=== PATIENT | female | born 1970 | race Caucasian/White ===

== ENCOUNTER → 2022-03-26 10:42 | Outpatient (BNVA) | payer OTHER, SELFPAY | PROVIDERS: PCP Internal Medicine; Visit Provider Nurse Practitioner Family | DX: G47.33 Obstructive sleep apnea (adult) (pediatric) (principal); R06.83 Snoring; R40.0 Somnolence; G43.109 Migraine with aura, not intractable, without status migrainosus; Z79.4 Long term (current) use of insulin | CPT/HCPCS: 99212 ==

== ENCOUNTER → 2022-06-02 19:30 | Outpatient (REF) | payer OTHER, SELFPAY | LOC: HO.SL 19:30 | PROVIDERS: Visit Provider Nurse Practitioner Family | DX: G47.33 Obstructive sleep apnea (adult) (pediatric) (principal) | CPT/HCPCS: 95810; 95811 ==

== ENCOUNTER → 2022-06-23 12:56 | Outpatient (BNVA) | payer OTHER, SELFPAY | PROVIDERS: PCP Internal Medicine; Visit Provider Nurse Practitioner Family | DX: G43.109 Migraine with aura, not intractable, without status migrainosus (principal); G47.33 Obstructive sleep apnea (adult) (pediatric); G47.34 Idiopathic sleep related nonobstructive alveolar hypoventilation; E66.9 Obesity, unspecified; Z68.37 Body mass index [BMI] 37.0-37.9, adult | CPT/HCPCS: 99212 ==

== ENCOUNTER → 2022-07-22 19:30 | Outpatient (REF) | payer OTHER, SELFPAY | LOC: HO.SL 19:30 | PROVIDERS: PCP Internal Medicine; Visit Provider Nurse Practitioner Family | DX: Z13.89 Encounter for screening for other disorder (principal) ==

== ENCOUNTER 2023-01-16 08:03 | Outpatient (AMB) | payer OTHER, SELFPAY ==
--- NOTE | 2023-01-16 08:10 | MHC.OFFVIS ---
Intake Vital Signs 01/16/23 08:11 Height 5 ft 1 in Weight 178 lb 4 oz BMI 33.7 BP 106/62 Blood Pressure Location Rt brachial Position Sitting Pulse 90 Pulse Source Pulse Oximeter Pulse Oximetry (%) 98 Oxygen Delivery Method Room Air Intake Visit Reasons: 3m follow up-Confirmed Intake Note: Pt presents to the office for 3 month follow up for migraines. She reports she feels the same. she still gets headaches in the frontal and temporal regions. Allergies Penicillins [PENICILLINS] Allergy (Mild, Unverified 01/16/23 08:11) RASH penicillin V Allergy (Unknown, Verified 01/16/23 08:11) Rash Medication List - Last Reconciled 01/16/23 by JIMMY Box aspirin 1 tab PO BEDTIME atorvastatin 10 mg PO DAILY blood sugar diagnostic (FreeStyle Lite Strips) As directed bupropion HCl 150 mg PO QAM buspirone 30 mg PO BID cariprazine (Vraylar) 3 mg PO BEDTIME clonazepam 0.5 mg PO DAILY PRN diphenhydramine HCl (Banophen) 50 mg PO BEDTIME gabapentin 100 mg PO TID gabapentin 800 mg PO DAILY glipizide ER mg PO insulin glargine (Lantus Solostar U-100 Insulin) units subcut insulin lispro subcut levothyroxine 125 mcg PO DAILY loratadine 10 mg PO DAILY losartan 100 mg PO DAILY magnesium oxide 400 mg PO BEDTIME 30 days metformin 1,000 mg PO BID pen needle, diabetic (Comfort EZ Pen [place]) As directed riboflavin (vitamin B2) 400 mg PO DAILY 30 days semaglutide (Ozempic) mg subcut sennosides (Bernadine-neil) 8.6 mg PO BID PRN sumatriptan succinate 50 - 100 mg orally at onset of headache, may repeat in 2 hrs PRN; max 2 tabs/day or 4 tabs/wk 30 days topiramate 25 - 50 mg (1 - 2 x 25 mg) PO BEDTIME 30 days HPI HPI Comments History of Present Illness Details 52-yr-old female presents for f/u visit. Pt denies any significant interval medical changes. Pt reports she is having 2-3 migraines per week. Bifrontal/temporal and occipital a/w photo/phonophobia. She is not currently taking anything as she has run out- but states Topiramate and Sumatriptan have been previously helpful. She underwent in-lab PSG in May 2022 which revealed which showed severe obstructive sleep apnea w/ AHI 40/hr, REM AHI 64/hr, and O2 aminata 72%. She then underwent in-lab PAP titration which showed reduction in sleep breathing disturbances and hypoxemia to CPAP 12 cmH2O. Pt's CPAP machine continues to not work- states water collects in the mask so she cannot use it consistently. Without CPAP, she does not sleep well, snoring, has difficulty sleeping, daytime tiredness, and increased headaches. When she is able to use her CPAP, she feels much better overall. [facility] Medical History Arthritis Cervicalgia Depression with anxiety HLD (hyperlipidemia) Hypothyroidism Memory difficulties Syncope Surgical History H/O tubal ligation Family History Father Heart disease Kidney disease Mother Heart disease Kidney disease Hyperlipidemia Diabetes mellitus Daughter Seizures Social History Alcohol intake: never Patient Tobacco Use Status: Never used Tobacco Review of Systems Const All systems reviewed & are unremarkable except as noted in HPI and below Physical Exam Vital Signs: Last Vital Signs Pulse 90 01/16/23 08:11 BP 106/62 01/16/23 08:11 Pulse Ox 98 01/16/23 08:11 Oxygen Delivery Method Room Air 01/16/23 08:11 BMI result Body Mass Index 33.7 Const General: cooperative and no acute distress Orientation/consciousness: patient oriented x3 HEENT Head: Yes normocephalic Resp Effort & Inspection: normal respiratory effort and able to speak in complete sentences Neuro General: patient oriented x3, gait normal and CN's II-XI intact bilaterally Cognition (Neuro): normal cognition Motor exam (neuro): 5/5 motor strength present throughout Psych Appearance: grossly normal Mental Status: mental status grossly normal Speech and movement: Normal speech and movement present Affect: normal affect Attitude: cooperative Thought process: Normal thought process present Thought content: Normal thought content present Insight: Good insight present (Psych) Judgement: Good judgement present (Psych) Assessment & Plan Assessment & Plan (1) Migraine with aura: Code(s): G43.109 - Migraine with aura, not intractable, without status migrainosus (2) Severe obstructive sleep apnea: Code(s): G47.33 - Obstructive sleep apnea (adult) (pediatric) Plan For acute migraine treatment: Resume Sumatriptan 50-100mg prn. For migraine prevention: Riboflavin 400mg qam Magnesium 400mg qhs Resume Topiramate 25-50mg qhs. For severe APPLE: Pt advised to resume CPAP [id number] nightly > 4 hrs, as pt previously had good effect from use. Pt has only stopped using her CPAP consistently d/t machine malfunctionng, thus will request new CPAP machine. f/u in 3-4 months or sooner prn. Medications: New topiramate 25 - 50 mg (1 - 2 x 25 mg) PO BEDTIME 30 days 60 tabs 3RF Refilled magnesium oxide 400 mg PO BEDTIME 30 days 30 tabs 6RF sumatriptan succinate (0.5 - 1 x 100 mg) 50 - 100 mg orally at onset of headache, may repeat in 2 hrs PRN; max 2 tabs/day or 4 tabs/wk 30 days 12 tabs 6RF migraine headache riboflavin (vitamin B2) 400 mg PO DAILY 30 days 30 tabs 6RF Coding Level of Care Code Est Pt Level 4 (24421) Diagnoses Migraine with aura G43.109 Severe obstructive sleep apnea G47.33
[2023-01-16 08:11] VITALS: BP 106/62; PULSE 90; O2SAT 98; BMI 33.7
== END 2023-01-16 08:45 | disposition home or self-care (01) ==
PROVIDERS: Visit Provider Nurse Practitioner Family
DX: G43.109 Migraine with aura, not intractable, without status migrainosus (principal); G47.33 Obstructive sleep apnea (adult) (pediatric)
CPT/HCPCS: 99214

== ENCOUNTER → 2023-01-16 08:03 | Outpatient (BNVA) | payer OTHER, SELFPAY | PROVIDERS: Visit Provider Nurse Practitioner Family | DX: G43.709 Chronic migraine without aura, not intractable, without status migrainosus (principal); G47.33 Obstructive sleep apnea (adult) (pediatric) | CPT/HCPCS: 99212 ==

== ENCOUNTER 2023-05-01 12:53 | Outpatient (AMB) | payer OTHER, SELFPAY ==
--- NOTE | 2023-05-01 13:09 | A.OFFVIS_ITS ---
Intake Vital Signs 05/01/23 13:16 Height 5 ft 1 in Weight 181 lb 4 oz BMI 34.2 BP 115/70 Blood Pressure Location Rt brachial Position Sitting Pulse 80 Pulse Source Pulse Oximeter Pulse Oximetry (%) 97 Oxygen Delivery Method Room Air Intake Visit Reasons: 3 mnts fu for APPLE-Confirmed Intake Note: Patient presents 3 months CPAP machine has been broken for 3 months and can't sleep at night Allergies Penicillins [PENICILLINS] Allergy (Mild, Verified 05/01/23 13:13) RASH penicillin V Allergy (Unknown, Verified 05/01/23 13:13) Rash HPI HPI Comments History of Present Illness Details 53-year-old female presents for f/u visi t. Since the last visit, patient reports she has had a diagnosis of cervical cancer. She underwent 2 surgical procedures for this, including a total hysterectomy with oophorectomy in February 2023. She is followed by Dr. Acosta at [place], and has been referred to [facility] for follow-up radiation therapy. She states she will not be having chemotherapy. She states she has not had any recent headaches. She is compliant with her vitamin B2, magnesium, topiramate. She does have sumatriptan if she needs it. She has not been able to sleep well lately. States her CPAP machine is still not working, so she has not been able to use at. The machine releases too much air pressure. She does not think this is related to her pressure tolerance, but the machine fluctuating in how much pressure it is actually giving her. She would like to resume using her CPAP machine. [facility] Medical History Arthritis Cervicalgia Depression with anxiety HLD (hyperlipidemia) Hypothyroidism Memory difficulties Syncope Surgical History H/O tubal ligation Family History Father Heart disease Kidney disease Mother Heart disease Kidney disease Hyperlipidemia Diabetes mellitus Daughter Seizures Social History Alcohol intake: never Patient Tobacco Use Status: Never used Tobacco Physical Exam Vital Signs: Last Vital Signs Pulse 80 05/01/23 13:16 BP 115/70 05/01/23 13:16 Pulse Ox 97 05/01/23 13:16 Oxygen Delivery Method Room Air 05/01/23 13:16 BMI result Body Mass Index 34.2 Const General: cooperative and no acute distress Orientation/consciousness: patient oriented x3 Resp Effort & Inspection: normal respiratory effort and able to speak in complete sentences Neuro General: patient oriented x3 Cranial nerves: Yes CN's II-XII intact bilaterally Cognition (Neuro): normal cognition Psych Appearance: grossly normal Mental Status: mental status grossly normal Speech and movement: Normal speech and movement present Affect: normal affect Attitude: cooperative Assessment & Plan Assessment & Plan (1) S/P hysterectomy with oophorectomy: Comment: Feb 2023 at [facility] Code(s): Z90.710 - Acquired absence of both cervix and uterus; Z90.721 - Acquired absence of ovaries, unilateral (2) Cervical cancer: Comment: f/b Dr Jose Miguel Acosta at [facility]- planned for Rx tx in Apr 2023 Code(s): C53.9 - Malignant neoplasm of cervix uteri, unspecified (3) Severe obstructive sleep apnea: Code(s): G47.33 - Obstructive sleep apnea (adult) (pediatric) (4) Migraine with aura: Code(s): G43.109 - Migraine with aura, not intractable, without status migrainosus Plan For acute migraine treatment: Sumatriptan 50-100mg prn. ? For migraine prevention: Riboflavin 400mg qam Magnesium 400mg qhs Topiramate 25-50mg qhs. ? For severe APPLE: Patient would benefit from resuming CPAP [id number] nightly > 4 hrs, as pt previously had good effect from use. Pt has only stopped using her CPAP d/t machine malfunctionng, thus will request new CPAP machine. New CPAP replacement order written for CPAP 12 cm H2O nightly greater than 4 hours ? Patient advised that she may have increase in headaches or sleep difficulties while undergoing radiation therapy, encouraged her to contact us if any new or worsening symptoms arise. Otherwise f/u in 4 months or sooner prn. Coding Level of Care Code Est Pt Level 4 (43337) Diagnoses S/P hysterectomy with oophorectomy Z90.710; Z90.721 Cervical cancer C53.9 Severe obstructive sleep apnea G47.33 Migraine with aura G43.109
[2023-05-01 13:16] VITALS: BP 115/70; PULSE 80; O2SAT 97; BMI 34.2
== END 2023-05-01 13:46 | disposition home or self-care (01) ==
PROVIDERS: PCP Internal Medicine; Visit Provider Nurse Practitioner Family
DX: Z90.710 Acquired absence of both cervix and uterus (principal); Z90.721 Acquired absence of ovaries, unilateral; C53.9 Malignant neoplasm of cervix uteri, unspecified; G47.33 Obstructive sleep apnea (adult) (pediatric); G43.109 Migraine with aura, not intractable, without status migrainosus
CPT/HCPCS: 99214

== ENCOUNTER → 2023-05-01 12:53 | Outpatient (BNVA) | payer OTHER, SELFPAY | PROVIDERS: PCP Internal Medicine; Visit Provider Nurse Practitioner Family | DX: G47.33 Obstructive sleep apnea (adult) (pediatric) (principal); G43.109 Migraine with aura, not intractable, without status migrainosus; C53.9 Malignant neoplasm of cervix uteri, unspecified; Z90.710 Acquired absence of both cervix and uterus; Z90.721 Acquired absence of ovaries, unilateral | CPT/HCPCS: 99212 ==

== ENCOUNTER 2023-08-18 12:48 | Outpatient (AMB) | payer OTHER, SELFPAY ==
--- NOTE | 2023-08-18 12:59 | MHC.OFFVIS ---
Vital Signs 08/18/23 13:11 Height 5 ft 1 in Weight 190 lb 6 oz BMI 36.0 BP 112/70 Blood Pressure Location Lt brachial Position Sitting Pulse 80 Pulse Source Pulse Oximeter Pulse Oximetry (%) 97 Oxygen Delivery Method Room Air Intake Visit Reasons: 3-4 mo f/u-CONF Intake Note: Patient presents for 3-4 months f/u. Can't get CPAP machine until December. Having difficulty sleeping, snoring a lot and having trouble breathing at night. Wall And Floor Tiler Required: Yes Wall And Floor Tiler Name: Elisha Basurto Allergies Penicillins [PENICILLINS] Allergy (Mild, Verified 08/18/23 13:07) RASH penicillin V Allergy (Unknown, Verified 08/18/23 13:07) Rash Medication List - Last Reconciled 08/18/23 by JIMMY Box aspirin 1 tab PO BEDTIME atorvastatin 10 mg PO DAILY blood sugar diagnostic (FreeStyle Lite Strips) As directed bupropion HCl XL 150 mg PO QAM buspirone 30 mg PO BID cariprazine (Vraylar) 3 mg PO BEDTIME clonazepam 0.5 mg PO DAILY PRN diphenhydramine HCl (Banophen) 50 mg PO BEDTIME gabapentin 100 mg PO TID gabapentin 800 mg PO DAILY glipizide ER mg PO insulin glargine (Lantus Solostar U-100 Insulin) units subcut insulin lispro subcut levothyroxine 125 mcg PO DAILY loratadine 10 mg PO DAILY losartan 100 mg PO DAILY magnesium oxide 400 mg PO BEDTIME 30 days metformin 1,000 mg PO BID pen needle, diabetic (Comfort EZ Pen [place]) As directed riboflavin (vitamin B2) 400 mg PO DAILY 30 days semaglutide (Ozempic) mg subcut sennosides (Bernadine-neil) 8.6 mg PO BID PRN sumatriptan succinate 50 - 100 mg orally at onset of headache, may repeat in 2 hrs PRN; max 2 tabs/day or 4 tabs/wk 30 days topiramate 25 - 50 mg (1 - 2 x 25 mg) PO BEDTIME 30 days HPI Comments Details: 53-yr-old female presents for f/u visit. Pt is just completing radiation Tx for cervical cancer. She is not sleeping well, as she has not been able to humza her CPAP. The machine is not eligible to be replaced until Dec. Sometimes has difficulty falling asleep even w/ taking her sleeping pills, but more difficulty maintaining sleep. Watches TV in the living room before bedtime. Shuts everything down when she goes to bed. No late day caffeien use. Not exercising. Goes to bed when tired. She wakes up snoring, gasping. She wakes up tired. She is not having a lot of headaches. She is compliant with her vitamin B2, magnesium, topiramate. She does have sumatriptan if she needs it. [facility] Medical History (Updated 08/18/23 @ 13:47 by JIMMY Box) Obstructive sleep apnea Depression with anxiety Hypothyroidism Memory difficulties Arthritis HLD (hyperlipidemia) Cervicalgia Syncope Surgical History H/O tubal ligation Family History Father Heart disease Kidney disease Mother Heart disease Kidney disease Hyperlipidemia Diabetes mellitus Daughter Seizures Social History Alcohol intake: never Patient Tobacco Use Status: Never used Tobacco Physical Exam Vital Signs: Last Vital Signs Pulse 80 08/18/23 13:11 BP 112/70 08/18/23 13:11 Pulse Ox 97 08/18/23 13:11 Oxygen Delivery Method Room Air 08/18/23 13:11 BMI result Body Mass Index 36.0 Const General: cooperative and no acute distress Orientation/consciousness: patient oriented x3 Resp Effort & Inspection: normal respiratory effort and able to speak in complete sentences Neuro General: patient oriented x3 Cranial nerves: Yes CN's II-XII intact bilaterally Cognition (Neuro): normal cognition Psych Appearance: grossly normal Mental Status: mental status grossly normal Speech and movement: Normal speech and movement present Affect: normal affect Attitude: cooperative Assessment & Plan Assessment & Plan (1) Severe obstructive sleep apnea: Code(s): G47.33 - Obstructive sleep apnea (adult) (pediatric) Category: Medical (2) Migraine with aura: Code(s): G43.109 - Migraine with aura, not intractable, without status migrainosus Category: Medical Plan For acute migraine treatment: Sumatriptan 50-100mg prn. ? For migraine prevention: Riboflavin 400mg qam Magnesium 400mg qhs Topiramate 25-50mg qhs. ? For severe APPLE: Patient would benefit from resuming CPAP. Reviewed most previous PAP titration report- at lower pressures pt had mildly elevated residual AHI. However,pt is not tolerating more effective pressure of 12 cmH2o. Thus, will adjust CPAP from 12 cmH2O w/ EPR 2 to CPAP 6 w/ EPR 3- in hopes this is better tolerated and improves sleep maintenance. Setting adjusted today via [employer] account. Pt to call us if she does not tolerate changes. Will check PAP compliance in 2weeks to assess effect of her residual sleep apnea. ? Otherwise f/u in 6 months or sooner prn. Coding Level of Care Code Est Pt Level 4 (53337) Diagnoses Severe obstructive sleep apnea G47.33 Migraine with aura G43.109
[2023-08-18 13:11] VITALS: BP 112/70; PULSE 80; O2SAT 97; BMI 36.0
== END 2023-08-18 13:42 | disposition home or self-care (01) ==
PROVIDERS: PCP Internal Medicine; Visit Provider Nurse Practitioner Family
DX: G47.33 Obstructive sleep apnea (adult) (pediatric) (principal); G43.109 Migraine with aura, not intractable, without status migrainosus
CPT/HCPCS: 99214

== ENCOUNTER → 2023-08-18 12:48 | Outpatient (BNVA) | payer OTHER, SELFPAY | PROVIDERS: PCP Internal Medicine; Visit Provider Nurse Practitioner Family | DX: G47.33 Obstructive sleep apnea (adult) (pediatric) (principal); G43.109 Migraine with aura, not intractable, without status migrainosus | CPT/HCPCS: 99212 ==

== ENCOUNTER 2024-03-08 11:06 | Outpatient (AMB) | payer OTHER, SELFPAY ==
[2024-03-08 11:54] VITALS: BP 122/70; PULSE 89; O2SAT 96; BMI 40.1
--- NOTE | 2024-03-08 11:54 | A.OFFVIS_ITS ---
Vital Signs 03/08/24 11:54 Height 5 ft 1 in Weight 212 lb BMI 40.1 BP 122/70 Blood Pressure Location Rt brachial Position Sitting Pulse 89 Pulse Source Pulse Oximeter Pulse Oximetry (%) 96 Oxygen Delivery Method Room Air Intake Visit Reasons: 7 month F/U [employer] Required: Yes Information Interpreted: non-clinical & clinical (Elisha Marin) Accompanied by: Daughter Allergies Penicillins [PENICILLINS] Allergy (Mild, Verified 03/08/24 11:56) RASH penicillin V Allergy (Unknown, Verified 03/08/24 11:56) Rash Medication List - Last Reconciled 03/08/24 by JIMMY Box aspirin 1 tab PO BEDTIME atorvastatin 10 mg PO DAILY blood sugar diagnostic (FreeStyle Lite Strips) As directed bupropion HCl XL 150 mg PO QAM buspirone 30 mg PO BID cariprazine (Vraylar) 3 mg PO BEDTIME clonazepam 0.5 mg PO DAILY PRN diphenhydramine HCl (Banophen) 50 mg PO BEDTIME gabapentin 100 mg PO TID gabapentin 800 mg PO DAILY glipizide ER mg PO insulin glargine (Lantus Solostar U-100 Insulin) units subcut insulin lispro subcut levothyroxine 125 mcg PO DAILY loratadine 10 mg PO DAILY losartan 100 mg PO DAILY magnesium oxide 400 mg PO BEDTIME 30 days metformin 1,000 mg PO BID pen needle, diabetic (Comfort EZ Pen [place]) As directed riboflavin (vitamin B2) 400 mg PO DAILY 30 days semaglutide (Ozempic) 1 mg subcut QWEEK sennosides (Bernadine-neil) 8.6 mg PO BID PRN sumatriptan succinate 50 - 100 mg orally at onset of headache, may repeat in 2 hrs PRN; max 2 tabs/day or 4 tabs/wk 30 days topiramate 25 - 50 mg (1 - 2 x 25 mg) PO BEDTIME 30 days HPI Comments Details: 53-yr-old female presents for f/u visit. Pt accompanied by family. Pt reports she just had a f/u CT to monitor status of cervical cancer- s/p Rx tx in July 2023. Usually her blood sugars are well-controlled, sometimes BG may be elevate do low 200s. She is not sure what her last thyroid level was. Review of recent labs through [facility]- notable for anemia, elevated TSH 5 H. She rec'd a new CPAP machine, which she is using nightly. Sleeping well with use, but can wake up still tired. When walking she feels tired and like she cannot breathe. Denies SOB at rest. Sleeping from 11pm, then wakes up around 9-10am. Denies leg cramps or restless sleep. I cannot access pt's [employer] today. Pt shares w/ me, her [employer] airview ian- shows 100% use w/ residual AHI < 5/hr. [id number]\[facility]. She has not been having headaches recently. She is compliant with her vitamin B2, magnesium, topiramate. She does have sumatriptan if she needs it. [facility] Medical History (Updated 03/08/24 @ 13:01 by JIMMY Box) Osteoarthritis Obstructive sleep apnea Depression with anxiety Hypothyroidism Memory difficulties Arthritis HLD (hyperlipidemia) Cervicalgia Syncope Surgical History H/O tubal ligation Family History Father Heart disease Kidney disease Mother Heart disease Kidney disease Hyperlipidemia Diabetes mellitus Daughter Seizures Social History Alcohol intake: never Patient Tobacco Use Status: Never used Tobacco Physical Exam Vital Signs: BMI result Body Mass Index 40.1 Const General: cooperative and no acute distress Orientation/consciousness: patient oriented x3 Resp Effort & Inspection: normal respiratory effort and able to speak in complete sentences Neuro General: patient oriented x3 Cranial nerves: Yes CN's II-XII intact bilaterally Cognition (Neuro): normal cognition Psych Appearance: grossly normal Mental Status: mental status grossly normal Speech and movement: Normal speech and movement present Affect: normal affect Attitude: cooperative Assessment & Plan Assessment & Plan (1) Severe obstructive sleep apnea: Code(s): G47.33 - Obstructive sleep apnea (adult) (pediatric) Category: Medical (2) Migraine with aura: Code(s): G43.109 - Migraine with aura, not intractable, without status migrainosus Category: Medical (3) Fatigue: Code(s): R53.83 - Other fatigue Category: Medical Qualifiers: Fatigue type: unspecified Qualified Code(s): R53.83 - Other fatigue Plan For acute migraine treatment: Sumatriptan 50-100mg prn. ? For migraine prevention: Riboflavin 400mg qam Magnesium 400mg qhs Topiramate 25-50mg qhs. ? For severe APPLE: Continue CPAP 6 w/ EPR 3, as pt is having good clinical benefit from use. Will request [facility] connect us to pt's [employer] account. New CPAP SN [id number] Pt to call us if she does not tolerate changes. Check fasting labs for common etiologies of residual fatigue despite optimal PAP tx use. f/u w PCP as scheduled next week. Will follow-up upon review of above and patient to follow-up in clinic in 6 months or sooner prn. Orders: Orders TSH reflex Free T4 Today D64.9 - Anemia, unspecified, E03.9 - Hypothyroidism, unspecified, M19.90 - Unspecified osteoarthritis, unspecified site, R53.83 - Other fatigue Folate Today D64.9 - Anemia, unspecified, E03.9 - Hypothyroidism, unspecified, M19.90 - Unspecified osteoarthritis, unspecified site, R53.83 - Other fatigue Comprehensive Met. Panel Today D64.9 - Anemia, unspecified, E03.9 - Hypothyroidism, unspecified, M19.90 - Unspecified osteoarthritis, unspecified site, R53.83 - Other fatigue IRON PROFILE Today D64.9 - Anemia, unspecified, E03.9 - Hypothyroidism, unspecified, M19.90 - Unspecified osteoarthritis, unspecified site, R53.83 - Other fatigue Methylmalonic Acid Today D64.9 - Anemia, unspecified, E03.9 - Hypothyroidism, unspecified, M19.90 - Unspecified osteoarthritis, unspecified site, R53.83 - Other fatigue Vitamin B12 and Folate Today D64.9 - Anemia, unspecified, E03.9 - Hypothyroidism, unspecified, M19.90 - Unspecified osteoarthritis, unspecified site, R53.83 - Other fatigue Complete Blood Count Auto Diff Today D64.9 - Anemia, unspecified, E03.9 - Hypothyroidism, unspecified, M19.90 - Unspecified osteoarthritis, unspecified site, R53.83 - Other fatigue Ferritin Today D64.9 - Anemia, unspecified, E03.9 - Hypothyroidism, unspecified, M19.90 - Unspecified osteoarthritis, unspecified site, R53.83 - Other fatigue Homocysteine Today D64.9 - Anemia, unspecified, E03.9 - Hypothyroidism, unspecified, M19.90 - Unspecified osteoarthritis, unspecified site, R53.83 - Other fatigue Vitamin D 25-OH (D2 and D3) Today D64.9 - Anemia, unspecified, E03.9 - Hypothyroidism, unspecified, M19.90 - Unspecified osteoarthritis, unspecified site, R53.83 - Other fatigue Medications: Refilled sumatriptan succinate (0.5 - 1 x 100 mg) 50 - 100 mg orally at onset of headache, may repeat in 2 hrs PRN; max 2 tabs/day or 4 tabs/wk 30 days 12 tabs 6RF migraine headache riboflavin (vitamin B2) 400 mg PO DAILY 30 days 30 tabs 6RF magnesium oxide 400 mg PO BEDTIME 30 days 30 tabs 6RF Coding Level of Care Code Est Pt Level 4 (31085) Diagnoses Severe obstructive sleep apnea G47.33 Migraine with aura G43.109 Fatigue, unspecified type R53.83 Fatigue type: unspecified
== END 2024-03-08 12:34 | disposition home or self-care (01) ==
PROVIDERS: PCP Internal Medicine; Visit Provider Nurse Practitioner Family
DX: G47.33 Obstructive sleep apnea (adult) (pediatric) (principal); G43.109 Migraine with aura, not intractable, without status migrainosus; R53.83 Other fatigue
CPT/HCPCS: 99214

== ENCOUNTER → 2024-03-08 11:06 | Outpatient (BNVA) | payer OTHER, SELFPAY | PROVIDERS: PCP Internal Medicine; Visit Provider Nurse Practitioner Family | DX: G43.109 Migraine with aura, not intractable, without status migrainosus (principal); G47.33 Obstructive sleep apnea (adult) (pediatric); R53.83 Other fatigue | CPT/HCPCS: 99212 ==